=== PATIENT | male | born 1945 | race Caucasian/White ===

== ENCOUNTER 2016-05-02 12:40 | Emergency (ER) | payer MEDICARE ==
[~2016-05-02] VITALS: Ht 180.3 cm; Wt 86.0 kg
[~2016-05-02 12:40] MED LIST changes: -ASPI-860 PO; -ATOR10TA PO; -CHLO25TA2 PO
[2016-05-02] MEDS ORDERED: SODIUM CHLORIDE FLUSH 10 ML SYR IV PRN (13:05)
[2016-05-02] MEDS ORDERED: ONDANSETRON 2 MG/ML (Z0FRAN) 2 ML VIAL IV ONE (13:05)
[2016-05-02 13:15] LABS: CREATINE KINASE 86 U/L (55-170)
[2016-05-02] MEDS ORDERED: CHLO25TA2 PO (13:18)
[2016-05-02] MEDS ORDERED: ASPI-860 PO (13:19)
[2016-05-02] MEDS ORDERED: ATOR10TA PO (13:19)
--- NOTE | 2016-05-02 14:13 | NUR ---
1412 TEMP RECHECK 97.6 ORALLY
--- NOTE | 2016-05-02 14:40 | NUR ---
1440 PT TAKEN OFF O2 BY NC FOR TRIAL
--- NOTE | 2016-05-02 14:43 | NUR ---
1443 SATS ON RA 94%. DR. COHEN NOTIFIED
[2016-05-02] MEDS ORDERED: POTASSIUM CHLORIDE ER 20 MEQ TABLET PO ONE (14:50)
--- NOTE | 2016-05-02 15:06 | NUR ---
1455 PT WALKED WITHOUT O2. SAT 99%. 1500 PT SITTING AT BEDSIDE WITH NO O2, SATS 96%. 1445 ORTHOSTATIC VITALS TAKEN LYING - 129/75, PULSE 56 SITTING - 147/76, PULSE 66 STANDING - 134/82, PULSE 61
--- NOTE | 2016-05-02 15:51 | NUR ---
VITAL SIGNS INADVERTENTLY ERASED. VS WNL EXCEPT DURING LOW O2 SAT READING. VS WNL AFTER O2 REMOVED.
[2016-05-02 19:57] VITALS: BP 148/73
== END 2016-05-02 15:27 | disposition home or self-care (01) ==
LOC: ED 12:44
DX: R55 Syncope and collapse (principal); Z87.891 Personal history of nicotine dependence
CPT/HCPCS: 36415; 82550; 82553; 84146; 84484; 93005; 96361; 96374; 99285; A9270; J2405; J7030; 93010; 99284

== ENCOUNTER → 2016-05-02 | Outpatient (CLI) | payer MEDICARE ==
[~2016-05-02] MED LIST: ASPI-860 PO; ATOR10TA PO; CHLO25TA2 PO; GLUC-116 PO; MULT-351 PO; OMG1KC PO; PROP1TAB PO; SERT50TA PO
[2016-05-02 12:43] LABS: BASOPHILS % (AUTO) 1 % (0-2); EOSINOPHILS # (AUTO) 0.3 10^3uL; EOSINOPHILS % (AUTO) 4 % (0-4); MEAN CORPUSCULAR VOLUME 87 FL (80-100); MEAN PLATELET VOLUME 8.6 FL (6.0-9.5); MONOCYTES # (AUTO) 0.8 X10^3; MONOCYTES % (AUTO) 11 % (3-11); NEUTROPHILS # (AUTO) 4.2 X10^3; NEUTROPHILS % (AUTO) 56 % (51-67); PLATELET COUNT 235 10^3uL (150-450); WHITE BLOOD COUNT 7.42 10^3uL (4.0-11.0)
[2016-05-02 12:55] LABS: MEAN CORPUSCULAR HGB CONC 36.8 g/dL (31.0-37.0)
[2016-05-02 13:18] LABS: ALBUMIN 4.8 g/dL (3.4-5.0); ANION GAP 16.2 MEQ/L (3-15); CALCULATED IONIZED CALCIUM 3.9 mg/dL (3.8-4.6); TOTAL PROTEIN 8.1 g/dL (6.4-8.5)
== END ==
LOC: LAB 12:10
PROVIDERS: ATTEND Internal Medicine
DX: Z00.00 Encounter for general adult medical examination without abnormal findings (principal); R73.09 Other abnormal glucose; I10 Essential (primary) hypertension; E78.4 Other hyperlipidemia; Z12.5 Encounter for screening for malignant neoplasm of prostate
CPT/HCPCS: 36415; 80053; 80061; 83036; 84443; 85025; 86803; G0103; 84153

== ENCOUNTER → 2016-05-08 | Outpatient (CLI) | payer MEDICARE ==
[~2016-05-08] MED LIST changes: +ASPI-860 PO; +ATOR10TA PO; +CHLO25TA2 PO
--- NOTE | 2016-05-08 13:31 | Diagnostic Imaging Report ---
INDICATION: Abdominal aortic aneurysm screening. Abdominal aortic sonography performed in routine fashion. FINDINGS: There is no evidence of abdominal aortic aneurysm. The abdominal aorta measured 2.9 cm in greatest diameter. There is no evidence of iliac aneurysm. IMPRESSION: No evidence of abdominal aortic aneurysm. Dictated by: Dictated on workstation # [id number]
== END ==
LOC: RAD 10:03
PROVIDERS: ATTEND Internal Medicine
DX: Z13.6 Encounter for screening for cardiovascular disorders (principal)

== ENCOUNTER → 2016-07-29 | Outpatient (CLI) | payer MEDICARE ==
[2016-07-29 13:17] LABS: ANION GAP 18.1 MEQ/L (3-15)
== END ==
LOC: LAB 12:40
PROVIDERS: ATTEND Internal Medicine
DX: I10 Essential (primary) hypertension (principal)
CPT/HCPCS: 36415; 80048